=== PATIENT | female | born 1965 | race Caucasian/White ===

== ENCOUNTER 2016-07-21 06:25 | Day surgery (SDC) | payer OTHER ==
[~2016-07-21] VITALS: Ht 157.5 cm; Wt 68.8 kg
[2016-07-21 07:23] VITALS: Ht 157.5 cm; Wt 68.8 kg
[2016-07-21] MEDS ORDERED: HTN MED PO (07:25)
[2016-07-21 07:39] VITALS: BP 137/77; PULSE 62; RESP 12
[2016-07-21] MEDS ORDERED: MIDAZOLAM 1 MG/ML 2 ML INJ ONE (08:21)
[2016-07-21] MEDS ORDERED: FENTAnyl 50 MCG/ML VIAL ONE (08:21)
[2016-07-21 08:39] VITALS: BP 112/68; PULSE 62; RESP 15
--- NOTE | 2016-07-21 10:49 | GILP ---
DATE OF PROCEDURE: 07/21/2016 NAME OF PROCEDURE: Colonoscopy. SURGEON: Campos Albarado MD PREOPERATIVE DIAGNOSIS: Screening colonoscopy. POSTOPERATIVE DIAGNOSES: 1. Colonoscopy all the way to the cecum. 2. Internal hemorrhoids. 3. No colon neoplasm was identified. INDICATION FOR THE PROCEDURE: Ms. Radha Dias is a 51-year-old female patient who was scheduled for screening colonoscopy. The procedure and possible complications were well explained to the patient. The patient understood and consented to the procedure. DESCRIPTION OF PROCEDURE: Under the influence of fentanyl and Versed, the colonoscope was carefully introduced in the rectum. Under direct vision, it was advanced all the way to the cecum. FINDINGS: The patient had internal hemorrhoids. No colon neoplasm was identified. The patient tolerated the procedure very well, and there was no complication from the procedure. At the end of the procedures, she was awake with stable vital signs, and she was discharged home to [facility] care of her family. IMPRESSION: 1. Colonoscopy all the way to the cecum. 2. Internal hemorrhoids. 3. No colon neoplasm was identified. PLAN: Next screening colonoscopy in 10 years. Dictated By: CAMPOS DOE/JAMES Conf#: [id number] DID#: [id number]
== END 2016-07-21 12:04 | disposition home or self-care (01) ==
LOC: GIL 06:25
PROVIDERS: ATTEND Internal Medicine Gastroenterology
DX: Z12.11 Encounter for screening for malignant neoplasm of colon (principal); K64.8 Other hemorrhoids; I10 Essential (primary) hypertension
CPT/HCPCS: 45378; J2250; J3010; Z7610